=== PATIENT | female | born 1970 | race African-American/Black ===

== ENCOUNTER 2020-01-28 17:04 | Emergency (ER) | payer MEDICAID ==
[~2020-01-28] VITALS: Ht 160 cm; Wt 49.9 kg
[2020-01-28 17:25] VITALS: BP 113/73
--- NOTE | 2020-01-28 17:26 | Emergency Room Report ---
History of Present Illness General Chief Complaint: To Be Triaged Source: Patient Present Illness HPI The patient presents with 3 days of lower abdominal pain. She has not taken any medication for it. She denies fevers or chills. She has a history of fibroids but feels that this is not related to her fibroids. She is concerned about a possible urinary tract infection. Her last menstruation was September when she is perimenopausal at this time. She denies back pain. There is no nausea, vomiting or diarrhea. She denies upper respiratory symptoms either. No exposure to Covid positive contacts. Allergies: Uncoded Allergies: PENICILLIN (Allergy, Unknown, 01/28/20) Patient History Past Medical History: see triage record Social History: Reports: smoking, alcohol use, drug use - THC Social History Narrative From home not working Reviewed Nursing Documentation: PMH: Agreed; PSxH: Agreed Review of Systems All Other Systems: negative except mentioned in HPI Physical Exam Vital Signs Date Time Temp Pulse Resp B/P (MAP) Pulse Ox O2 Delivery O2 Flow Rate FiO2 01/28/20 17:25 98.2 75 20 113/73 100 Room Air Sp02 EP Interpretation: reviewed, normal General Appearance: well appearing, no apparent distress, GCS 15 Head: normocephalic Eyes: bilateral eye normal inspection, bilateral eye PERRL, bilateral eye EOMI ENT: other - Wearing mask Neck: supple Respiratory: normal inspection Cardiovascular #1: regular rate, rhythm Cardiovascular #2: 2+ radial (R) Gastrointestinal: normal inspection, normal bowel sounds, non-distended, no guarding, no rebound, tenderness - Minimal suprapubic area, mass - Nodularity felt suprapubic area Genitourinary: no CVA tenderness Musculoskeletal: back normal, normal range of motion, gait/station normal Neurologic: alert, oriented x3, grossly normal Psychiatric: mood/affect normal Skin: no rash, warm/dry Medical Decision Making Diagnostic Impression: Primary Impression: Pelvic pain Additional Impression: Fibroid ER Course Patient presents with lower abdominal pain. Differential includes fibroids, UTI, diverticulitis, ovarian cyst amongst others. Patient evaluated with labs and urinalysis with urine . Patient treated with some IV hydration and Toradol. Labs with normal CBC and CMP. Urinalysis clear. Patient improved with treatment. Discussed most probable diagnosis of fibroid pain. Discussed in the face of normal labs CT or ultrasound imaging not indicated at this time. Discussed with patient outpatient observation and offered her the possibility of a CAT scan to further diagnose the problem. I advised against this at this time as she has improved and has normal labs. The patient elected for outpatient observation. I stated that if the pain worsened that she would consider coming back for further evaluation including possible CT scan. I believe ultrasound would not be helpful assess with revealed fibroids. She stated that she felt it was more gas that was causing discomfort. I suggested use of Mylanta. Patient stable for outpatient observation and treatment. Laboratory Tests Test 01/28/20 17:35 White Blood Count 7.2 K/UL (4.8-10.8) Red Blood Count 3.91 M/UL (4.20-5.40) L Hemoglobin 13.5 G/DL (12.0-16.0) Hematocrit 39.5 % (37.0-47.0) Mean Corpuscular Volume 101 FL (80-99) H Mean Corpuscular Hemoglobin 34.5 PG (27.0-31.0) H Mean Corpuscular Hemoglobin Concent 34.1 G/DL (32.0-36.0) Red Cell Distribution Width 11.8 % (11.6-14.8) Platelet Count 191 K/UL (150-450) Mean Platelet Volume 8.2 FL (6.5-10.1) Neutrophils (%) (Auto) 69.0 % (45.0-75.0) Lymphocytes (%) (Auto) 22.8 % (20.0-45.0) Monocytes (%) (Auto) 5.5 % (1.0-10.0) Eosinophils (%) (Auto) 0.9 % (0.0-3.0) Basophils (%) (Auto) 1.9 % (0.0-2.0) Prothrombin Time 10.7 SEC (9.30-11.50) Prothrombin Time INR 1.0 (0.9-1.1) Activated Partial Thromboplast Time 31 SEC (23-33) Urine Color Yellow Urine Appearance Slightly cloudy Urine pH 5 (4.5-8.0) Urine Specific [place] 1.020 (1.005-1.035) Urine Protein 1+ (NEGATIVE) H Urine Glucose (UA) Negative (NEGATIVE) Urine Ketones Negative (NEGATIVE) Urine Blood 1+ (NEGATIVE) H Urine Nitrite Negative (NEGATIVE) Urine Bilirubin Negative (NEGATIVE) Urine Urobilinogen Normal MG/DL (0.0-1.0) Urine Leukocyte Esterase 1+ (NEGATIVE) H Urine RBC 0-2 /HPF (0 - 2) Urine WBC 0-2 /HPF (0 - 2) Urine Squamous Epithelial Cells Few /LPF (NONE/OCC) Urine Bacteria Occasional /HPF (NONE) Urine HCG, Qualitative Negative (NEGATIVE) Sodium Level 139 MMOL/L (136-145) Potassium Level 4.1 MMOL/L (3.5-5.1) Chloride Level 102 MMOL/L (98-107) Carbon Dioxide Level 30 MMOL/L (21-32) Blood Urea Nitrogen 9 mg/dL (7-18) Creatinine 1.0 MG/DL (0.55-1.30) Estimated Glomerular Filtration Rate > 60 mL/min (>60) Glucose Level 98 MG/DL (74-106) Calcium Level 9.6 MG/DL (8.5-10.1) Total Bilirubin 1.2 MG/DL (0.2-1.0) H Direct Bilirubin 0.2 MG/DL (0.0-0.3) Aspartate Amino Transferase (AST) 21 U/L (15-37) Alanine Aminotransferase (ALT) 15 U/L (12-78) Alkaline Phosphatase 76 U/L (46-116) Total Protein 7.1 G/DL (6.4-8.2) Albumin 3.6 G/DL (3.4-5.0) Globulin 3.5 g/dL Albumin/Globulin Ratio 1.0 (1.0-2.7) Lipase 127 U/L (73-393) Last Vital Signs Date Time Temp Pulse Resp B/P (MAP) Pulse Ox O2 Delivery O2 Flow Rate FiO2 01/28/20 19:25 97.5 73 18 141/81 100 Room Air Status: improved Disposition: HOME, SELF-CARE Condition: Improved Scripts Mag Hydrox/Aluminum Hyd/Simeth (Mylanta Maximum Strength Liq) 355 Ml Oral.susp 30 ML PO Q6HR PRN for gas, #240 ML Prov: Alonso Martin MD 01/28/20 Ibuprofen* (MOTRIN*) 600 Mg Tablet 600 MG ORAL Q6H PRN for FOR PAIN, #20 TAB 0 Refills Prov: Alonso Martin MD 01/28/20 Alonso Martin MD Jan 28, 2020 17:26
[2020-01-28] MEDS ORDERED: Ketorolac 30mg Inj IV ONE (17:30)
--- NOTE | 2020-01-28 17:35 | NUR ---
ED Nurse Note: Patient from home and walked in due to lower abd pain x 3 days. Denies N/V/D. No reports of dysuria. AAO x,4 ambulates with steady gait with non labored breathing.
--- NOTE | 2020-01-28 17:44 | NUR ---
ED Nurse Note: Collected blood and urine specimen then sent.
[2020-01-28] MEDS ORDERED: ACETAMINOPHEN325 M1 ORAL (17:51)
[2020-01-28 17:52] LABS: BASOPHILS % (AUTO) 1.9 % (0.0-2.0); EOSINOPHILS % (AUTO) 0.9 % (0.0-3.0); HEMATOCRIT 39.5 % (37.0-47.0); HEMOGLOBIN 13.5 G/DL (12.0-16.0); LYMPHOCYTES % (AUTO) 22.8 % (20.0-45.0); MEAN CORPUSCULAR VOLUME 101 FL (80-99); MONOCYTES % (AUTO) 5.5 % (1.0-10.0); PLATELET COUNT 191 K/UL (150-450); RED BLOOD COUNT 3.91 M/UL (4.20-5.40); RED CELL DISTRIBUTION WIDTH 11.8 % (11.6-14.8); WHITE BLOOD COUNT 7.2 K/UL (4.8-10.8)
[2020-01-28 17:53] LABS: APPEARANCE,URINE SLIGHTLY CLOUDY; BILIRUBIN, URINE NEGATIVE (NEGATIVE); GLUCOSE, URINE (UA) NEGATIVE (NEGATIVE); KETONES,URINE NEGATIVE (NEGATIVE); LEUKOCYTE ESTERASE ,URINE 1+ (NEGATIVE); NITRITE,URINE NEGATIVE (NEGATIVE); PH,URINE 5 (4.5-8.0); PROTEIN,URINE 1+ (NEGATIVE); UROBILINOGEN,URINE NORMAL MG/DL (0.0-1.0)
[2020-01-28 17:57] LABS: COLOR,URINE YELLOW
[2020-01-28 18:09] LABS: ALANINE AMINOTRANSFERASE 15 U/L (12-78); ALBUMIN 3.6 G/DL (3.4-5.0); ALKALINE PHOSPHATASE 76 U/L (46-116); ASPARTATE AMINO TRANSFERASE 21 U/L (15-37); BILIRUBIN,TOTAL 1.2 MG/DL (0.2-1.0); BLOOD UREA NITROGEN 9 mg/dL (7-18); CALCIUM 9.6 MG/DL (8.5-10.1); CARBON DIOXIDE 30 MMOL/L (21-32); CHLORIDE 102 MMOL/L (98-107); POTASSIUM 4.1 MMOL/L (3.5-5.1); SODIUM 139 MMOL/L (136-145)
[2020-01-28 18:10] LABS: BILIRUBIN,DIRECT 0.2 MG/DL (0.0-0.3)
--- NOTE | 2020-01-28 19:04 | NUR ---
HAND-OFF: Report given to Roma BASS.
--- NOTE | 2020-01-28 19:06 | NUR ---
ED Nurse Note: Endorsed care of pt. Pt found laying in bed in stable condition. No acute distress noted. MD Martin at bedside speaking with patient.
[2020-01-28] MEDS ORDERED: IBUPROFEN600 M1 ORAL (19:13)
[2020-01-28] MEDS ORDERED: MYLANTA MAXIMU355 ML PO (19:13)
[2020-01-28 19:25] VITALS: BP 141/81
--- NOTE | 2020-01-28 19:25 | NUR ---
ER DISCHARGE NOTE: Patient is cleared to be discharged per ERMD, pt is aox4, on room air, with stable vital signs. pt was given dc paperwork and paper prescriptions with instructions to f/u with PMD next week. pt was able to verbalize understanding, pt id band and iv site removed without complications. pt is able to ambulate with steady gait. pt took all belongings.
== END 2020-01-28 19:25 | disposition home or self-care (01) ==
LOC: EMR 17:20
DX: D21.9 Benign neoplasm of connective and other soft tissue, unspecified (principal); R10.2 Pelvic and perineal pain; Z88.0 Allergy status to penicillin; F17.200 Nicotine dependence, unspecified, uncomplicated
CPT/HCPCS: 36415; 80053; 81003; 81025; 82248; 83690; 85025; 85610; 85730; 96374; J1885; J7040; Z7502; 99284